=== PATIENT | female | born 1985 | race American Indian/Alaskan Native ===

== ENCOUNTER 2017-01-19 01:05 | Inpatient (IN) | payer OTHER ==
[2017-01-19 02:14] LABS: Basophils % (Auto) 0.5 % (0.0-1.8); Eosinophils % (Auto) 1.1 % (0.0-4.3); Hematocrit 37.6 % (30.3-42.9); Hemoglobin 12.1 gm/dl (10.1-14.3); Mean Corpuscular HGB Conc 32 % (30-34); Mean Corpuscular Volume 75 fl (79-97); Platelet Count 321 K/mm3 (140-440); Red Blood Count 5.01 M/mm3 (3.65-5.03); Red Cell Distribution Width 17.2 % (13.2-15.2); White Blood Count 13.8 K/mm3 (4.5-11.0)
[2017-01-19 02:16] LABS: Anion Gap 17 mmol/L; BUN/Creatinine Ratio 14.28; Blood Urea Nitrogen 10 mg/dL (7-17); Calcium 8.9 mg/dL (8.4-10.2); Carbon Dioxide 25 mmol/L (22-30); Chloride 99.4 mmol/L (98-107); Glucose 121 mg/dL (65-100); Potassium 3.7 mmol/L (3.6-5.0); Sodium 138 mmol/L (137-145)
[2017-01-19 02:18] LABS: Mean Corpuscular Hemoglobin 24 pg (28-32)
[2017-01-19] MEDS ORDERED: NORMODYNE IV ONE (02:31)
[2017-01-19 02:33] LABS: INR 0.97 (0.87-1.13)
[2017-01-19 02:34] LABS: Partial Thromboplastin Time 28.1 Sec. (24.2-36.6)
[2017-01-19] MEDS ORDERED: LASIX IV ONE (02:36)
[2017-01-19] MEDS ORDERED: TRIDIL DRIP 50MG/250ML 50 MG/250 ML BOTTLE IV ONE (02:36)
--- NOTE | 2017-01-19 02:43 | Emergency Department Report ---
ED Chest Pain HPI - General Chief Complaint: Chest Pain Stated Complaint: CHEST PAIN Time Seen by Provider: 01/19/17 02:00 Source: patient Mode of arrival: Ambulatory Limitations: No Limitations - History of Present Illness Initial Comments: -year-old female with several days of worsening chest pain suddenly worsened today she has pain in the center of her chest radiates her back she is extremely short of breath with this. She also has a mild headache. She has not been taking her antihypertensives for the last year. She denies fevers chills nausea vomiting. MD Complaint: chest pain -: Sudden Onset: during rest, during exertion Pain Location: substernal Severity scale (0 -10): 6 Quality: tightness, heaviness Consistency: constant Improves With: nothing Worsens With: nothing re: dyspnea - Related Data Allergies Allergy/AdvReac Type Severity Reaction Status Date / Time No Known Allergies Allergy Verified 01/19/17 01:21 Heart Score - HEART Score History: Moderately suspicious EKG: Non-specific Age: < 45 Risk factors: 1-2 risk factors Troponin: < normal limit HEART Score: 3 - Critical Actions Critical Actions: 0-3 pts:0.9-1.7%risk of adverse cardiac event.Candidate for discharge ED Review of Systems ROS: Stated complaint: CHEST PAIN Other details as noted in HPI Comment: All other systems reviewed and negative Constitutional: denies: chills, fever Respiratory: shortness of breath, SOB with exertion, SOB at rest. denies: cough , wheezing Cardiovascular: chest pain. denies: palpitations Endocrine: no symptoms reported Gastrointestinal: denies: abdominal pain, nausea, diarrhea Genitourinary: denies: urgency, dysuria, discharge Musculoskeletal: denies: back pain, joint swelling, arthralgia Skin: denies: rash, lesions Neurological: denies: headache, weakness, paresthesias Psychiatric: denies: anxiety, depression Hematological/Lymphatic: denies: easy bleeding, easy bruising ED Past Medical Hx - Past Medical History Previous Medical History?: Yes Hx Hypertension: Yes - Surgical History Past Surgical History?: No - Family History Family history: CAD/PR, hypertension - Social History Smoking Status: Never Smoker Substance Use Type: None ED Physical Exam - General Limitations: No Limitations General appearance: alert, obese, other (uncomfortable appearing) - Head Head exam: Present: atraumatic, normocephalic - Eye Eye exam: Present: normal appearance. Absent: scleral icterus, conjunctival injection - ENT ENT exam: Present: mucous membranes moist - Neck Neck exam: Present: normal inspection - Respiratory Respiratory exam: Present: respiratory distress, wheezes, rales - Cardiovascular Cardiovascular Exam: Present: normal rhythm, tachycardia. Absent: systolic murmur, diastolic murmur, rubs, gallop - GI/Abdominal GI/Abdominal exam: Present: soft, normal bowel sounds. Absent: distended, tenderness, guarding, rebound - Extremities Exam Extremities exam: Present: normal inspection - Back Exam Back exam: Present: normal inspection - Neurological Exam Neurological exam: Present: alert, oriented X3 - Psychiatric Psychiatric exam: Present: normal affect, normal mood - Skin Skin exam: Present: warm, dry, intact, normal color. Absent: rash ED Course Vital Signs 01/19/17 01/19/17 01/19/17 01:21 02:06 02:15 Temperature 99.8 F H Pulse Rate 127 H 114 H 113 H Respiratory 30 H 26 H 32 H Rate Blood Pressure 231/124 239/135 O2 Sat by Pulse 98 93 Oximetry 01/19/17 01/19/17 01/19/17 02:30 02:45 03:00 Temperature Pulse Rate 111 H 92 H 97 H Respiratory 28 H 27 H 22 Rate Blood Pressure 230/137 221/114 212/118 O2 Sat by Pulse 96 93 Oximetry 01/19/17 03:15 Temperature Pulse Rate 99 H Respiratory 24 Rate Blood Pressure 195/104 O2 Sat by Pulse Oximetry ED Medical Decision Making - Lab Data Result diagrams: 01/19/17 01:36 01/19/17 01:36 Laboratory Results - last 24 hr 01/19/17 01/19/17 01/19/17 01:36 01:36 01:36 WBC 13.8 H RBC 5.01 Hgb 12.1 Hct 37.6 MCV 75 L MCH 24 L MCHC 32 RDW 17.2 H Plt Count 321 Lymph % (Auto) 17.9 [place] % (Auto) 7.3 Eos % (Auto) 1.1 Baso % (Auto) 0.5 Lymph # 2.5 [place] # 1.0 H Eos # 0.2 Baso # 0.1 Seg Neutrophils % 73.2 H Seg Neutrophils # 10.1 H PT 12.8 INR 0.97 APTT 28.1 Sodium 138 Potassium 3.7 Chloride 99.4 Carbon Dioxide 25 Anion Gap 17 BUN 10 Creatinine 0.7 Estimated GFR > 60 BUN/Creatinine Ratio 14.28 Glucose 121 H Calcium 8.9 Troponin T < 0.010 - EKG Data -: EKG Interpreted by Me - EKG Data 01/19/17 02:42 Sinus tachycardia rate of 125 normal axis normal intervals LVH and T-wave inversions in V5 and V6 likely consistent with LV strain pattern - Medical Decision Making 31-year-old female with history of and controlled hypertension here with chest pain and shortness of breath. Patient states the pain got slightly worse along with worsening shortness of breath over the course of the last day. On clinical exam she has crackles bilaterally her oxygen saturations are in the low 90s. I think she likely has some mild flash pulmonary edema. Plan start the patient on a nitro drip treatment with Lasix and will admit to the ICU. Discussed case with hospitalist and plan admit patient to ICU. Portions of this chart were dictated with dictation software. There may be dictation errors contained within this note. Critical Care Time: Yes (45) Critical care attestation.: If time is entered above; I have spent that time in minutes in the direct care of this critically ill patient, excluding procedure time. Critical Care Time: 45 ED Disposition Clinical Impression: CHF (congestive heart failure), Malignant hypertension Disposition: OP ADMIT IP TO THIS HOSP Is pt being admited?: Yes Condition: Critical Instructions: Hypertension (ED) Referrals: PRIMARY CARE, [Primary Care Provider] - 3-5 Days
[2017-01-19] MEDS ORDERED: ZOFRAN IV PRN (05:29)
[2017-01-19] MEDS ORDERED: MORPHINE IV PRN (05:29)
[2017-01-19] MEDS ORDERED: TYLENOL PO PRN (05:29)
[2017-01-19] MEDS ORDERED: DULCOLAX PR PRN (05:29)
[2017-01-19] MEDS ORDERED: MILK OF MAGNESIA PO PRN (05:29)
--- NOTE | 2017-01-19 05:33 | History and Physical Report ---
History of Present Illness Date of examination: 01/19/17 History of present illness: 31-year-old woman with a history of hypertension, noncompliant with medication times few years comes emergency room with complaints of shortness of breath, cough and wheezing. Also complained of chest tightness in the anterior chest, constant, intensity 5/10, no radiation, she cannot identify exacerbating or relieving factors. Admits to nausea, shortness of breath, no diaphoresis or palpitation Review Of Systems: Constitutional: no weight loss Ears, eyes, nose, mouth and throat: no nasal congestion, no nasal discharge, no sinus pressure, blurry vision, diplopia Neck: No neck pain or rigidity. Cardiovascular: chest pain, orthopnea, palpitations Respiratory:+ shortness of breath, cough Gastrointestinal: abdominal pain, hematochezia Genitourinary : no dysuria, frequency , hematuria Musculoskeletal: no muscle ache Integumentary: no rash, no pruritis Neurological: no parathesias, focal weakness Endocrine: no cold or heat intolerance, no polyuria or polydipsia Hematologic/Lymphatic: no easy bruising, no easy bleeding, no gland swelling Allergic/Immunologic: no urticaria, no angioedema. PAST MEDICAL HISTORY:hypertension PAST SURGICAL HISTORY: None FAMILY HISTORY: Hypertension SOCIAL HISTORY:Denies alcohol, tobacco, drugs Medications and Allergies Allergies Allergy/AdvReac Type Severity Reaction Status Date / Time No Known Allergies Allergy Verified 01/19/17 01:21 Active Meds: Active Medications Nitroglycerin/Dextrose (Tridil Drip 50mg/250ml) 50 mg in 250 mls @ 24 mls/hr IV TITR ONE; 80 MCG/MIN PRN Reason: Protocol Stop: 01/19/17 13:00 Last Titration: 01/19/17 05:17 Dose: 45 mcg/min, 13.5 mls/hr Exam - Physical Exam Narrative exam: Gen. appearance: Patient lying in bed in no acute distress HEENT: Normocephalic/atraumatic, pupils equal round reactive to light, extra alkaline movement intact, no scleral icterus, no JVD or thyromegaly or nodule, neck is supple, mucous membrane moist, no erythema or exudate Heart: S1-S2, regular rate and rhythm Lungs: Crackles bilateral breathing comfortable Abdomen: Positive bowel sounds, nontender, nondistended, no organomegaly Extremities: No edema, cyanosis, clubbing Neuro:: Oriented 3 , cranial nerves II-12 intact, speech, motor intact Skin: No rash, nodules, warm dry - Constitutional Vitals: Temp Pulse Resp BP Pulse Ox 99.8 F H 106 H 28 H 188/102 93 01/19/17 01:21 01/19/17 04:35 01/19/17 04:35 01/19/17 04:35 01/19/17 02:45 Results - Labs CBC & Chem 7: 01/19/17 01:36 01/19/17 01:36 Labs: Abnormal lab results 01/19/17 01/19/17 Range/Units 01:36 01:36 WBC 13.8 H (4.5-11.0) K/mm3 MCV 75 L (79-97) fl MCH 24 L (28-32) pg RDW 17.2 H (13.2-15.2) % [place] # 1.0 H (0.0-0.8) K/mm3 Seg Neutrophils % 73.2 H (40.0-70.0) % Seg Neutrophils # 10.1 H (1.8-7.7) K/mm3 Glucose 121 H (65-100) mg/dL - Imaging and Cardiology EKG: image reviewed Chest x-ray: image reviewed Assessment and Plan Assessment Hypertensive urgency, malignant Pulmonary edema secondary to #1 next chest pain secondary to #1 Plan Admit medicine Continue nitroglycerin drip, check cardiac enzymes, echo Consult critical care, start IV morphine Obtain stress test once off nitroglycerin drip [Prophylaxis
[2017-01-19 06:40] LABS: Creatine Kinase MB 2.2 ng/mL (0.0-4.0)
[2017-01-19 06:42] LABS: Creatine Kinase 160 units/L (30-135)
--- NOTE | 2017-01-19 07:49 | Admit Criteria Form ---
Admission Criteria Documentation: HYPERTENSION Clinical Indications for Admission to Inpatient Care ( [place]/check or initial the applicable condition/criteria) Admission is indicated for 1 or more of the following(1)(2)(3)(4)(5)(6)(7)(8)(9) (10): [X]I. Hypertensive emergency, with evidence of acute and progressing target organ disease as indicated by 1 or more of the following: [ ]a) Hypertensive encephalopathy (e.g., confusion, altered mental status) (11) [ ]b) Cerebral infarction [ ]c) Intracranial hemorrhage [ ]d) Myocardial ischemia or infarction [X]e) Heart failure (eg. Pulmonary edema) [ ]f) Aortic dissection [ ]g) Increased creatinine (new) with reduction of more than 50% in estimated glomerular filtration rate from baseline [ ]h) Seizure [ ]i) Papilledema [ ]j) Retinal hemorrhage [ ]k) Microangiopathic hemolytic anemia [ ]l) Other significant finding secondary to hypertension [ ]II. Adrenergic or sympathomimetic crisis (e.g., severe hypertension due to pheochromocytoma crisis, cocaine, phencyclindine, or amphetamine intoxication, or clonidine withdrawal) [X]III. Severe hypertension (SBP greater than 180 mmHg or DBP greater than 110 mmHg or greater than the 95th percentile for age, gender, and height in pediatric patients) that cannot be controlled (e.g., to SBP less than 160 mmHg and DBP less than 100 mmHg in adults) by treatment with oral medication in emergency department or observation care (12) Extended stay beyond goal length of staymay be needed for(21)(22): [ ]a) Persistent hypertensive encephalopathy [ ]b) Continuation of pulmonary edema [ ]c) Recurring or persistent severe hypertension [ ]d) Target organ damage (eg, angina, stroke, aortic dissection) The original [employer] content created by [employer] has been revised. The portions of the content which have been revised are identified through the use of italic text or in bold, and [employer] has neither reviewed nor approved the modified material. All other unmodified content is copyright [employer]. Please see references footnoted in the original [employer] edition 2016 Admission Criteria Met: Yes
--- NOTE | 2017-01-19 07:59 | XRay Report ---
AP CHEST: HISTORY: Shortness of breath AP view of the chest demonstrates a normal mediastinal and cardiac contour with clear lungs and normal bony and soft tissue structures. IMPRESSION: No acute cardiopulmonary process identified.
[2017-01-19] MEDS: LOVENOX SUB-Q SCH (10:27)
[2017-01-19] MEDS ORDERED: APRESOLINE IV PRN (10:59)
[2017-01-19] MEDS: CARDENE 50 MG in NACL 0.9% 250ML 230 ML IV SCH (11:02)
[2017-01-19] MEDS: ZESTRIL PO SCH (11:29)
[2017-01-19] MEDS: HCTZ PO SCH (11:29)
[2017-01-19 12:16] LABS: Creatine Kinase 181 units/L (30-135); Creatine Kinase MB 2.4 ng/mL (0.0-4.0)
--- NOTE | 2017-01-19 17:48 | Event Note ---
Date: 01/19/17 Patient seen and examined in no acute distress continues on Cardene drip secondary to elevated blood pressure. Patient promises to be compliant with medication at this time. Has a strong family history of cardiac disease. wean off drip check A1C anticipate discharge in am if BP remains stable and patient clinically stable.
[2017-01-20] MEDS: CARDENE 50 MG in NACL 0.9% 250ML 230 ML IV SCH (02:18)
[2017-01-20 04:36] LABS: Basophils % (Auto) 0.4 % (0.0-1.8); Eosinophils % (Auto) 0.8 % (0.0-4.3); Hematocrit 37.6 % (30.3-42.9); Hemoglobin 12.3 gm/dl (10.1-14.3); Mean Corpuscular HGB Conc 33 % (30-34); Mean Corpuscular Volume 75 fl (79-97); Platelet Count 339 K/mm3 (140-440); Red Blood Count 5.03 M/mm3 (3.65-5.03); Red Cell Distribution Width 17.1 % (13.2-15.2); White Blood Count 13.3 K/mm3 (4.5-11.0)
[2017-01-20 04:37] LABS: Mean Corpuscular Hemoglobin 24 pg (28-32)
[2017-01-20 04:47] LABS: Anion Gap 18 mmol/L; BUN/Creatinine Ratio 16.66; Blood Urea Nitrogen 10 mg/dL (7-17); Calcium 9.1 mg/dL (8.4-10.2); Carbon Dioxide 25 mmol/L (22-30); Chloride 94.8 mmol/L (98-107); Glucose 99 mg/dL (65-100); Potassium 3.5 mmol/L (3.6-5.0); Sodium 134 mmol/L (137-145)
[2017-01-20] MEDS: HCTZ PO SCH (09:25)
[2017-01-20] MEDS: ZESTRIL PO SCH (09:25)
[2017-01-20 09:26] VITALS: BP 129/85
[2017-01-20] MEDS: LOVENOX SUB-Q SCH (09:26)
--- NOTE | 2017-01-20 09:41 | Discharge Summary ---
Providers - Providers Date of Admission: 01/19/17 05:29 Date of discharge: 01/20/17 Attending physician: SUSAN MCDERMOTT none Primary care physician: COUNSELOR/ART THERAPIST Hospitalization Reason for admission: hypertensive emergency Condition: Critical Pertinent studies: Chest x-ray was normal Echocardiogram showed concentric left ventricular hypertrophy. Ejection fraction was 55-60% Procedures: none Hospital course: Patient is a 31 y/o female who has a history of hypertension and has been noncompliant with medication. She has been off her medications for many months. Presented to the emergency Department on account of having shortness of breath, severely elevated blood pressure and chest pain. Patient was commenced on Cardene drip. ASA and oral antihypertensive meds. Blood pressure improved from 169/80-129/70. Serial cardiac enzymes were normal. Chest pain resolved. Echocardiogram showed left ventricular hypertrophy. There is no evidence of heart failure. Ejection fraction was 55-60. Patient is therefore being discharged to f/u with PCP. Discharge Medications Include Lisinopril 40 mg 1 Daily Amlodipine 10 mg 1 Daily. She is to Follow-Up with Primary Care physician in 3-5 days. Counselling on noncompliance with her medication was done. Discharge planning was for 35 mins Disposition: DC-01 TO HOME OR SELFCARE Core Measure Documentation - Palliative Care Palliative Care/ Comfort Measures: Not Applicable - Core Measures Any of the following diagnoses?: none Exam - Constitutional Vitals: Temp Pulse Resp BP Pulse Ox 98.2 F 98 H 21 129/85 96 01/20/17 08:00 01/20/17 09:25 01/20/17 04:00 01/20/17 09:25 01/20/17 09:02 General appearance: Present: no acute distress, well-nourished - EENT Eyes: Present: PERRL ENT: hearing intact, clear oral mucosa - Neck Neck: Present: supple, normal ROM - Respiratory Respiratory effort: normal Respiratory: bilateral: CTA - Cardiovascular Heart Sounds: Present: S1 & S2. Absent: rub, click - Extremities Extremities: pulses symmetrical, No edema Peripheral Pulses: within normal limits - Abdominal General gastrointestinal: Present: soft, non-tender, non-distended, normal bowel sounds - Integumentary Integumentary: Present: clear, warm, dry - Musculoskeletal Musculoskeletal: gait normal, strength equal bilaterally - Psychiatric Psychiatric: appropriate mood/affect, intact judgment & insight - Neurologic Neurologic: CNII-XII intact, moves all extremities Plan Weight Bearing Status: Weight Bear as Tolerated Diet: low salt Follow up with: PRIMARY CARE, [Primary Care Provider] - 3-5 Days Prescriptions: amLODIPine [Norvasc] 5 mg PO DAILY #30 tab Hydrochlorothiazide [HCTZ] 25 mg PO QDAY #30 tablet Lisinopril [Zestril TAB] 40 mg PO QDAY #30 tablet
[2017-01-20] MEDS ORDERED: Fluarix Quad 2017-2018(36 MOS+) IM ONE (12:00)
== END 2017-01-20 13:09 | disposition home or self-care (01) | DRG 305 ==
LOC: ED 01:05 → CC1 05:29
PROVIDERS: ADMIT Internal Medicine; ATTEND Family Medicine
PROC: 3E0234Z Introduction of Serum, Toxoid and Vaccine into Muscle, Percutaneous Approach (ICD-10-PCS; principal; 2017-01-19)
DX: I16.0 Hypertensive urgency (principal); J81.1 Chronic pulmonary edema; I11.0 Hypertensive heart disease with heart failure; I50.9 Heart failure, unspecified; Z91.19 Patient's noncompliance with other medical treatment and regimen; Z82.49 Family history of ischemic heart disease and other diseases of the circulatory system; Z71.89 Other specified counseling; Z23 Encounter for immunization
CPT/HCPCS: 36415; 71010; 80048; 82550; 82553; 83036; 83880; 84484; 85025; 85610; 85730; 90686; 93005; 93010; 93306; 96365; 96372; 96375; 99291; J1650; J1940; J7050